=== PATIENT | male | born 1950 | race Caucasian/White ===

== ENCOUNTER 2024-01-24 15:24 | Emergency (ER) | payer MEDICARE ==
[~2024-01-24] VITALS: Ht 193 cm; Wt 117.9 kg
[~2024-01-24 15:24] MED LIST: PREVACID30 M2 PO; Z.0.B12 5,000 MCG1 E SL; Z.0.SIMVASTATIN40 MG PO
[2024-01-24 15:51] VITALS: PULSE 71; RESP 16; TEMP 98.8; O2SAT 99
== END 2024-01-24 16:39 | disposition home or self-care (01) ==
LOC: ER 16:09
DX: S90.414A Abrasion, right lesser toe(s), initial encounter (principal); W22.09XA Striking against other stationary object, initial encounter; Y93.01 Activity, walking, marching and hiking; Y92.89 Other specified places as the place of occurrence of the external cause; I10 Essential (primary) hypertension; I50.9 Heart failure, unspecified; I48.91 Unspecified atrial fibrillation; K21.9 Gastro-esophageal reflux disease without esophagitis; Z86.73 Personal history of transient ischemic attack (TIA), and cerebral infarction without residual deficits; Z95.5 Presence of coronary angioplasty implant and graft
CPT/HCPCS: 99283